=== PATIENT | female | born 2000 | race African-American/Black ===

== ENCOUNTER 2022-05-23 21:58 | Emergency (ER) | payer MEDICAID ==
[~2022-05-23] VITALS: Ht 160 cm; Wt 60.3 kg
[2022-05-23 22:07] VITALS: BP 116/74
[2022-05-23] MEDS ORDERED: ACETAMINOPHEN 325MG TABLET PO NR (23:51)
[2022-05-24] MEDS ORDERED: CYCL5TAB PO (00:20)
[2022-05-24] MEDS ORDERED: NAPR-681 PO (00:20)
== END 2022-05-24 00:51 | disposition home or self-care (01) ==
LOC: ER 21:58
DX: S00.83XA Contusion of other part of head, initial encounter (principal); S16.1XXA Strain of muscle, fascia and tendon at neck level, initial encounter; V43.62XA Car passenger injured in collision with other type car in traffic accident, initial encounter; Y93.89 Activity, other specified; Y92.410 Unspecified street and highway as the place of occurrence of the external cause; Z91.040 Latex allergy status; Z98.890 Other specified postprocedural states
CPT/HCPCS: 81025; 99283

== ENCOUNTER 2025-02-26 16:43 | Emergency (ER) | payer MEDICAID ==
[~2025-02-26] VITALS: Ht 160 cm; Wt 85.0 kg
[~2025-02-26 16:43] MED LIST: CYCL5TAB3 PO; NAPR-681 PO
[2025-02-26 16:53] VITALS: O2SAT 99
[2025-02-26 17:17] VITALS: BP 155/83; PULSE 72; RESP 18; TEMP 36.6; O2SAT 98
[2025-02-26 19:40] LABS: BASOPHILS % 1.0 % (0.0-2.0); EOSINOPHILS % 0.5 % (0.0-5.0); HEMATOCRIT. 43.1 % (36.0-48.0); HEMOGLOBIN. 14.7 g/dL (12.0-16.0); LYMPHOCYTES % 18.2 % (20.0-50.0); MEAN PLATELET VOLUME 8.3 fl (7.4-10.4); MONOCYTES % 7.9 % (2.0-8.0); NEUTROPHILS % 72.4 % (40.0-76.0); PLATELET 299 x1000/uL (130-400); RED BLOOD CELL COUNT 4.66 mill/uL (4.2-5.4); RED CELL DISTRIBUTION WIDTH 14.4 % (11.6-14.6)
[2025-02-26 19:52] LABS: CREATININE 0.8 mg/dL (0.6-1.0); UREA NITROGEN BLOOD 6 mg/dL (9-23)
[2025-02-26 20:19] LABS: CLARITY URINE CLOUDY (CLEAR); GLUCOSE URINE NEGATIVE (NEGATIVE); KETONES URINE 2+ (NEGATIVE); LEUKOCYTE ESTERASE URINE NEGATIVE (NEGATIVE); NITRITE URINE NEGATIVE (NEGATIVE); OCCULT BLOOD URINE TRACE (NEGATIVE); PH URINE 5.5 (4.5-8.0); PROTEIN URINE 1+ (NEGATIVE); SPECIFIC GRAVITY URINE 1.031 (1.005-1.030); UROBILINOGEN URINE 1.0 E.U./dL (0.2-1.0)
[2025-02-26] MEDS: LORAZEPAM 1MG TABLET PO ONE (20:30)
[2025-02-26 20:58] LABS: COLOR URINE YELLOW (YELLOW)
[2025-02-26 20:59] LABS: BACTERIA URINE 2+; RBC URINE NONE SEEN /hpf (0-2); SQUAMOUS EPITHELIAL CELL URINE 2+ /lpf (RARE/1+); TRICHOMONAS URINE 1+; WBC URINE 0-2 /hpf (0-2)
[2025-02-26] MEDS: CHLORDIAZEPOXIDE 25MG CAPSULE PO ONE (21:20)
[2025-02-26] MEDS ORDERED: CHLO25CA11 MT (22:04)
== END 2025-02-26 22:17 | disposition home or self-care (01) ==
LOC: ER 16:43
DX: F10.239 Alcohol dependence with withdrawal, unspecified (principal); J45.909 Unspecified asthma, uncomplicated; Z91.040 Latex allergy status; Z98.890 Other specified postprocedural states; Y90.9 Presence of alcohol in blood, level not specified
CPT/HCPCS: 36415; 80048; 80320; 81003; 81025; 85025; 99283; G0480

== ENCOUNTER 2025-04-26 21:20 | Emergency (ER) | payer MEDICAID ==
[~2025-04-26] VITALS: Ht 167.6 cm; Wt 73.0 kg
[~2025-04-26 21:20] MED LIST changes: +CHLO25CA11 MT
[2025-04-26 21:26] VITALS: O2SAT 98
[2025-04-26] MEDS: SODIUM CHLORIDE 0.9% 1,000 ML IV ONE (22:31)
[2025-04-26] MEDS: ONDANSETRON HCL 4MG/2ML INJ IV ONE (22:32)
[2025-04-26] MEDS: KETOROLAC 15MG/ML VIAL IV ONE ×2 (22:32→23:43)
[2025-04-26 22:46] LABS: BASOPHILS % 0.5 % (0.0-2.0); EOSINOPHILS % 1.6 % (0.0-5.0); HEMATOCRIT. 42.6 % (36.0-48.0); HEMOGLOBIN. 14.4 g/dL (12.0-16.0); LYMPHOCYTES % 20.8 % (20.0-50.0); MEAN PLATELET VOLUME 8.3 fl (7.4-10.4); MONOCYTES % 7.6 % (2.0-8.0); NEUTROPHILS % 69.5 % (40.0-76.0); PLATELET 315 x1000/uL (130-400); RED BLOOD CELL COUNT 4.55 mill/uL (4.2-5.4); RED CELL DISTRIBUTION WIDTH 14.0 % (11.6-14.6)
[2025-04-26 23:01] LABS: HCG SCREEN NEGATIVE; UREA NITROGEN BLOOD 6 mg/dL (9-23)
[2025-04-26 23:02] LABS: CREATININE 0.8 mg/dL (0.6-1.0)
[2025-04-26 23:03] LABS: PROTEIN TOTAL 7.3 g/dL (6.0-8.3)
[2025-04-26 23:04] LABS: ASPARTATE AMINOTRANSFERASE 46 IU/L (<34); BILIRUBIN DIRECT < 0.1 mg/dL (<=3.0); BILIRUBIN TOTAL 0.3 mg/dL (0.1-1.0)
[2025-04-26 23:45] LABS: CLARITY URINE CLEAR (CLEAR); COLOR URINE YELLOW (YELLOW); GLUCOSE URINE NEGATIVE (NEGATIVE); KETONES URINE NEGATIVE (NEGATIVE); LEUKOCYTE ESTERASE URINE NEGATIVE (NEGATIVE); NITRITE URINE NEGATIVE (NEGATIVE); OCCULT BLOOD URINE NEGATIVE (NEGATIVE); PH URINE 6.5 (4.5-8.0); PROTEIN URINE NEGATIVE (NEGATIVE); SPECIFIC GRAVITY URINE 1.006 (1.005-1.030); UROBILINOGEN URINE 0.2 E.U./dL (0.2-1.0)
[2025-04-27] MEDS ORDERED: KETO10TA2 MT (00:15)
[2025-04-27 00:25] VITALS: BP 110/67; PULSE 72; RESP 18; TEMP 36.9; O2SAT 98
== END 2025-04-27 00:25 | disposition home or self-care (01) ==
LOC: ER 21:20
DX: N83.292 Other ovarian cyst, left side (principal); F41.9 Anxiety disorder, unspecified; Z91.040 Latex allergy status; Z79.899 Other long term (current) drug therapy
CPT/HCPCS: 80076; 80048; 81003; 84703; 83690; 83735; 85025; 86850; 86900; 86901; 36415; 76830; 76856; 96361; 96374; 96375; 96376; 99285; J1885; J2405; J7030; Z7610 ×3